=== PATIENT | male | born 1990 | race American Indian/Alaskan Native ===

== ENCOUNTER 2019-10-01 18:59 | Emergency (ER) | payer OTHER ==
[2019-10-01 19:49] LABS: Hematocrit 49.7 % (35.5-45.6); Hemoglobin 16.7 gm/dl (11.8-15.2); Mean Corpuscular HGB Conc 34 % (32-34); Mean Corpuscular Volume 97 fl (84-94); Platelet Count 193 K/mm3 (140-440); Red Blood Count 5.13 M/mm3 (3.65-5.03); Red Cell Distribution Width 13.6 % (13.2-15.2)
[2019-10-01 20:05] LABS: Alanine Aminotransferase 18 units/L (7-56); Albumin 4.6 g/dL (3.9-5); BUN/Creatinine Ratio 16; Blood Urea Nitrogen 16 mg/dL (9-20); Calcium 9.5 mg/dL (8.4-10.2); Hemolysis Index 75
--- NOTE | 2019-10-01 20:37 | XRay Report ---
CHEST 2 VIEWS INDICATION / CLINICAL INFORMATION: Chest Pain. COMPARISON: None available. FINDINGS: SUPPORT DEVICES: None. HEART / MEDIASTINUM: No significant abnormality. LUNGS / PLEURA: No significant pulmonary or pleural abnormality. No pneumothorax. ADDITIONAL FINDINGS: No significant additional findings. IMPRESSION: No significant abnormality Signer Name: Rahul Saleh MD FACR Signed: 10/01/2019 8:33 PM Workstation Name: [id number]
[2019-10-01 20:51] LABS: Total Cells Counted 100
[2019-10-01 20:52] LABS: Large Platelets 1+; Platelet Estimate Consistent w Auto; RBC Morphology Normal
--- NOTE | 2019-10-01 20:53 | Emergency Department Report ---
<CORTNEY PORTILLOYESYCECI Fernandez - Last Filed: 10/01/19 21:54> ED Chest Pain HPI - General Chief Complaint: Chest Pain Stated Complaint: CHEST PAIN/SHARP PAIN PUI?: No Source: patient Mode of arrival: Ambulatory Limitations: No Limitations - History of Present Illness Initial Comments: This is a 28-year-old healthy male with no prior medical history who presents the ED complaining of right-sided lower chest/abdominal pain that began 3 hours ago. Patient states that he started to get a sharp intermittent pains lasting about 10 seconds and relieving. Patient describes the pain as colicky that comes out a chill and resolves in 10 seconds. Patient denies fever/chills/nausea vomiting/shortness of breath. Patient does note that he was drinking alcohol yesterday but other than that he has no medical conditions or abdominal history MD Complaint: chest pain - Related Data Previous Rx's Medication Instructions Recorded Last Taken Type methOCARBAMOL [Robaxin TAB] 500 mg PO BID #20 tab 10/01/19 Unknown Rx Allergies Allergy/AdvReac Type Severity Reaction Status Date / Time No Known Allergies Allergy Unverified 10/01/19 19:17 Heart Score - HEART Score History: Slightly suspicious EKG: Normal Age: < 45 Risk factors: No known risk factors Troponin: < normal limit HEART Score: 0 ED Review of Systems Comment: All other systems reviewed and negative ED Past Medical Hx - Past Medical History Previous Medical History?: No - Surgical History Past Surgical History?: No - Social History Smoking Status: Never Smoker Substance Use Type: Alcohol, Marijuana - Medications Home Medications: Home Medications Medication Instructions Recorded Confirmed Last Taken Type methOCARBAMOL [Robaxin TAB] 500 mg PO BID #20 tab 10/01/19 Unknown Rx ED Physical Exam - General Limitations: No Limitations General appearance: alert, in no apparent distress - Head Head exam: Present: atraumatic, normocephalic - Eye Eye exam: Present: normal appearance - ENT ENT exam: Present: mucous membranes moist - Neck Neck exam: Present: normal inspection - Respiratory Respiratory exam: Present: normal lung sounds bilaterally. Absent: respiratory distress, wheezes, chest wall tenderness, accessory muscle use - Cardiovascular Cardiovascular Exam: Present: regular rate, normal rhythm. Absent: systolic murmur, diastolic murmur, rubs, gallop - GI/Abdominal GI/Abdominal exam: Present: soft, normal bowel sounds - Rectal Rectal exam: Present: deferred - Extremities Exam Extremities exam: Present: normal inspection - Back Exam Back exam: Present: normal inspection - Neurological Exam Neurological exam: Present: alert, oriented X3 - Psychiatric Psychiatric exam: Present: normal affect, normal mood - Skin Skin exam: Present: warm, dry, intact, normal color. Absent: rash BARNEY score - Barney Score Age > 65: (0) No Aspirin use within the Past 7 Days: (0) No 3 or more CAD Risk Factors: (0) No 2 or more Angina events in past 24 hrs: (0) No Known CAD with more than 50% Stenosis: (0) No Elevated Cardiac Markers: (0) No ST Deviation Greater than 0.5mm: (0) No BARNEY Score: 0 ED Medical Decision Making - Lab Data Result diagrams: 10/01/19 19:38 10/01/19 19:38 Laboratory Last Values WBC 5.4 K/mm3 (4.5-11.0) 10/01/19 19:38 RBC 5.13 M/mm3 (3.65-5.03) H 10/01/19 19:38 Hgb 16.7 gm/dl (11.8-15.2) H 10/01/19 19:38 Hct 49.7 % (35.5-45.6) H 10/01/19 19:38 MCV 97 fl (84-94) H 10/01/19 19:38 MCH 33 pg (28-32) H 10/01/19 19:38 MCHC 34 % (32-34) 10/01/19 19:38 RDW 13.6 % (13.2-15.2) 10/01/19 19:38 Plt Count 193 K/mm3 (140-440) 10/01/19 19:38 [place] % (Auto) Tapper Balance Wheel Screw Hole 10/01/19 19:38 Add Manual Diff Complete 10/01/19 19:38 Total Counted 100 10/01/19 19:38 Seg Neuts % (Manual) 48.0 % (40.0-70.0) 10/01/19 19:38 Band Neutrophils % 0 % 10/01/19 19:38 Lymphocytes % (Manual) 27.0 % (13.4-35.0) 10/01/19 19:38 Reactive Lymphs % (Man) 0 % 10/01/19 19:38 Monocytes % (Manual) 20.0 % (0.0-7.3) H 10/01/19 19:38 Eosinophils % (Manual) 3.0 % (0.0-4.3) 10/01/19 19:38 Basophils % (Manual) 2.0 % (0.0-1.8) H 10/01/19 19:38 Metamyelocytes % 0 % 10/01/19 19:38 Myelocytes % 0 % 10/01/19 19:38 Promyelocytes % 0 % 10/01/19 19:38 Blast Cells % 0 % 10/01/19 19:38 Nucleated RBC % Not Reportable 10/01/19 19:38 Seg Neutrophils # Man 2.6 K/mm3 (1.8-7.7) 10/01/19 19:38 Band Neutrophils # 0.0 K/mm3 10/01/19 19:38 Lymphocytes # (Manual) 1.5 K/mm3 (1.2-5.4) 10/01/19 19:38 Abs React Lymphs (Man) 0.0 K/mm3 10/01/19 19:38 Monocytes # (Manual) 1.1 K/mm3 (0.0-0.8) H 10/01/19 19:38 Eosinophils # (Manual) 0.2 K/mm3 (0.0-0.4) 10/01/19 19:38 Basophils # (Manual) 0.1 K/mm3 (0.0-0.1) 10/01/19 19:38 Metamyelocytes # 0.0 K/mm3 10/01/19 19:38 Myelocytes # 0.0 K/mm3 10/01/19 19:38 Promyelocytes # 0.0 K/mm3 10/01/19 19:38 Blast Cells # 0.0 K/mm3 10/01/19 19:38 WBC Morphology Not Reportable 10/01/19 19:38 Hypersegmented Neuts Not Reportable 10/01/19 19:38 Hyposegmented Neuts Not Reportable 10/01/19 19:38 Hypogranular Neuts Not Reportable 10/01/19 19:38 Smudge Cells Not Reportable 10/01/19 19:38 Toxic Granulation Not Reportable 10/01/19 19:38 Toxic Vacuolation Not Reportable 10/01/19 19:38 Dohle Bodies Not Reportable 10/01/19 19:38 Pelger-Huet Anomaly Not Reportable 10/01/19 19:38 Fanta Rods Not Reportable 10/01/19 19:38 Platelet Estimate Consistent w auto 10/01/19 19:38 Clumped Platelets Not Reportable 10/01/19 19:38 Plt Clumps, EDTA Not Reportable 10/01/19 19:38 Large Platelets 1+ 10/01/19 19:38 Giant Platelets Not Reportable 10/01/19 19:38 Platelet Satelliting Not Reportable 10/01/19 19:38 Plt Morphology Comment Not Reportable 10/01/19 19:38 RBC Morphology Normal 10/01/19 19:38 Dimorphic RBCs Not Reportable 10/01/19 19:38 Polychromasia Not Reportable 10/01/19 19:38 Hypochromasia Not Reportable 10/01/19 19:38 Poikilocytosis Not Reportable 10/01/19 19:38 Anisocytosis Not Reportable 10/01/19 19:38 Microcytosis Not Reportable 10/01/19 19:38 Macrocytosis Not Reportable 10/01/19 19:38 Spherocytes Not Reportable 10/01/19 19:38 Pappenheimer Bodies Not Reportable 10/01/19 19:38 Sickle Cells Not Reportable 10/01/19 19:38 Target Cells Not Reportable 10/01/19 19:38 Tear Drop Cells Not Reportable 10/01/19 19:38 Ovalocytes Not Reportable 10/01/19 19:38 Helmet Cells Not Reportable 10/01/19 19:38 [place]ehan-C[place]well Bodies Not Reportable 10/01/19 19:38 [place] Rings Not Reportable 10/01/19 19:38 [place] Cells Not Reportable 10/01/19 19:38 Bite Cells Not Reportable 10/01/19 19:38 Crenated Cell Not Reportable 10/01/19 19:38 Elliptocytes Not Reportable 10/01/19 19:38 Acanthocytes (Spur) Not Reportable 10/01/19 19:38 Rouleaux Not Reportable 10/01/19 19:38 Hemoglobin C Crystals Not Reportable 10/01/19 19:38 Schistocytes Not Reportable 10/01/19 19:38 Malaria parasites Not Reportable 10/01/19 19:38 Elder Bodies Not Reportable 10/01/19 19:38 Hem Pathologist Commnt No 10/01/19 19:38 Sodium 140 mmol/L (137-145) 10/01/19 19:38 Potassium 4.2 mmol/L (3.6-5.0) 10/01/19 19:38 Chloride 96.9 mmol/L (98-107) L 10/01/19 19:38 Carbon Dioxide 28 mmol/L (22-30) 10/01/19 19:38 Anion Gap 19 mmol/L 10/01/19 19:38 BUN 16 mg/dL (9-20) 10/01/19 19:38 Creatinine 1.0 mg/dL (0.8-1.5) 10/01/19 19:38 Estimated GFR > 60 ml/min 10/01/19 19:38 BUN/Creatinine Ratio 16 % 10/01/19 19:38 Glucose 100 mg/dL (75-100) 10/01/19 19:38 Calcium 9.5 mg/dL (8.4-10.2) 10/01/19 19:38 Total Bilirubin 0.20 mg/dL (0.1-1.2) 10/01/19 19:38 AST 21 units/L (5-40) 10/01/19 19:38 ALT 18 units/L (7-56) 10/01/19 19:38 Alkaline Phosphatase 61 units/L (35-129) 10/01/19 19:38 Total Creatine Kinase 112 units/L (55-170) 10/01/19 19:38 Troponin T < 0.010 ng/mL (0.00-0.029) 10/01/19 19:38 Total Protein 8.4 g/dL (6.3-8.2) H 10/01/19 19:38 Albumin 4.6 g/dL (3.9-5) 10/01/19 19:38 Albumin/Globulin Ratio 1.2 % 10/01/19 19:38 Influenza A (Rapid) Negative (Negative) 10/01/19 Unknown Influenza B (Rapid) Negative (Negative) 10/01/19 Unknown Group A Strep Rapid Negative (Negative) 10/01/19 Unknown - Radiology Data Radiology results: report reviewed, image reviewed CHEST 2 VIEWS INDICATION / CLINICAL INFORMATION: Chest Pain. COMPARISON: None available. FINDINGS: SUPPORT DEVICES: None. HEART / MEDIASTINUM: No significant abnormality. LUNGS / PLEURA: No significant pulmonary or pleural abnormality. No pneumothorax. ADDITIONAL FINDINGS: No significant additional findings. IMPRESSION: No significant abnormality Signer Name: Rahul Saleh MD FACR Signed: 10/01/2019 8:33 PM Workstation Name: [id number] Transcribed By: MS Dictated By: Rahul Saleh MD Electronically Authenticated By: Rahul Saleh MD Signed Date/Time: 10/01/192032 - Medical Decision Making This 28-year-old male who presented to ED complaining of right sided lower/abdominal chest pain. All labs are within normal limits troponin negative x2 EKG normal, chest x-ray normal. Influenza / strep was all negative Patient was nontender during exam abdomen. No signs of hepatomegaly. Patient keeps insisting that he is having sharp pains to the right side. Limited abdominal ultrasound ordered to scan the liver and gallbladder for sludge. If ultrasound negative. Patient to be discharged home with instructions to take Motrin as needed for pain and Robaxin prescribed. Patient given pain medication in the ED. ED Disposition Clinical Impression: Costochondral chest pain, Chest wall pain Disposition: DC-01 TO HOME OR SELFCARE Is pt being admited?: No Does the pt Need Aspirin: No Condition: Stable Instructions: Chest Pain (ED), Costochondritis (ED), Gastroenteritis (ED) Additional Instructions: Make sure to follow up with the primary care physician as discussed. Take all your medications as you've been prescribed. If you have any worsening symptoms or develop new symptoms please return to ED immediately. Prescriptions: methOCARBAMOL [Robaxin TAB] 500 mg PO BID #20 tab Referrals: PRIMARY CARE, [Primary Care Provider] - 3-5 Days [facility] [Provider Group] - 3-5 Days [facility] [Provider Group] - 3-5 Days Forms: Work/School Release Form(ED) <RUDY SAUNDERS - Last Filed: 10/02/19 01:44> ED Review of Systems ROS: Stated complaint: CHEST PAIN/SHARP PAIN Other details as noted in HPI ED Course Vital Signs 10/01/19 10/01/19 19:17 21:31 Temperature 99.7 F H Pulse Rate 66 Respiratory 18 18 Rate Blood Pressure 157/101 O2 Sat by Pulse 99 Oximetry ED Medical Decision Making - Lab Data Result diagrams: 10/01/19 19:38 10/01/19 19:38 - Radiology Data Referring Physician:ISABELLA Dee Name:NAINA PATELPatient ID:[id number] of :[id number]:MaleAccession:[id number] Date:[id number] Status:Finalized Findings [facility] [address] [place] [address] Ultrasound Report Signed Patient: NAINA PATEL MR#: [id number] : 1990 Acct:[id number] Age/Sex: 28 / M ADM Date: 10/01/19 Loc: ED Attending Dr: Ordering Physician: VIVIANE ORTEGA Date of Service: 10/01/19 Procedure(s): US abdomen limited Accession Number(s): [id number] cc: VIVIANE ORTEGA ULTRASOUND ABDOMEN, LIMITED (RIGHT UPPER QUADRANT) INDICATION: Right upper quadrant pain. COMPARISON: None. FINDINGS: Pancreas: Visualized portions of the pancreas are within normal limits. Liver: The liver appears normal and size and echogenicity. Gallbladder: The gallbladder appears normal without wall thickening or stones. Bile ducts: Common Bile Duct is normal in caliber measuring less than 2 mm Free fluid: None. Additional Findings: None. IMPRESSION: 1. No sonographic abnormality of the right upper quadrant. Signer Name: Angelia Kim MD Signed: 10/02/2019 12:43 AM Workstation Name: [id number] Transcribed By: EB Dictated By: Angelia Kim MD Electronically Authenticated By: Angelia Kim MD Signed Date/Time: 10/02/1942 DD/ TD/TT: Critical care attestation.: If time is entered above; I have spent that time in minutes in the direct care of this critically ill patient, excluding procedure time. ED Disposition Is pt being admited?: No Does the pt Need Aspirin: No
[2019-10-01] MEDS ORDERED: predniSONE 20 MG TAB PO ONE (21:24)
[2019-10-01] MEDS ORDERED: ACETAMINOPHEN W/CODEINE 300-30 MG TAB PO ONE (21:24)
--- NOTE | 2019-10-02 00:47 | Ultrasound Report ---
ULTRASOUND ABDOMEN, LIMITED (RIGHT UPPER QUADRANT) INDICATION: Right upper quadrant pain. COMPARISON: None. FINDINGS: Pancreas: Visualized portions of the pancreas are within normal limits. Liver: The liver appears normal and size and echogenicity. Gallbladder: The gallbladder appears normal without wall thickening or stones. Bile ducts: Common Bile Duct is normal in caliber measuring less than 2 mm Free fluid: None. Additional Findings: None. IMPRESSION: 1. No sonographic abnormality of the right upper quadrant. Signer Name: Angelia Kim MD Signed: 10/02/2019 12:43 AM Workstation Name: [id number]
[2019-10-02 01:43] VITALS: BP 128/92
== END 2019-10-02 01:43 | disposition home or self-care (01) ==
LOC: ED 18:59
DX: R07.89 Other chest pain (principal); F12.90 Cannabis use, unspecified, uncomplicated; Z79.899 Other long term (current) drug therapy
CPT/HCPCS: 36415; 71046; 76705; 80053; 82550; 84484; 85007; 85025; 87116; 87400; 87430; 93005; 99284; J7512

== ENCOUNTER 2021-04-13 07:57 | Emergency (ER) | payer OTHER ==
[2021-04-13 09:12] VITALS: BP 134/78
[2021-04-13] MEDS ORDERED: diphenhydrAMINE 50 MG/ML VIAL IV ONE (09:13)
[2021-04-13] MEDS ORDERED: SODIUM CHLORIDE 0.9% 1000 ML 1,000 ML IV ONE (09:13)
[2021-04-13] MEDS ORDERED: METOCLOPRAMIDE 10 MG/2 ML INJ IV ONE (09:13)
[2021-04-13] MEDS ORDERED: PANTOPRAZOLE 40 MG INJ IV ONE (09:13)
[2021-04-13] MEDS ORDERED: BACLOFEN 10 MG TAB PO STA (09:14)
--- NOTE | 2021-04-13 09:16 | Emergency Department Report ---
ED General Adult HPI - General Chief complaint: Upper Respiratory Infection Stated complaint: PNEUMONIA SYMPTOMS Time Seen by Provider: 04/13/21 09:02 Source: patient Mode of arrival: Ambulatory Limitations: No Limitations - History of Present Illness Initial comments: 30-year-old -Monegas[place] male patient presents with complaints of body aches, chills, nausea/vomiting/diarrhea, and cough x4 days. He also complains of intractable hiccups for the past 2 days. Patient states he is vaccinated against COVID-19 and has a test scheduled for COVID-19 at 12 PM today in urgent care, however his cousin who is an [employer] recommend he come to the ED to get checked for pneumonia due to the intractable hiccups. He denies being a heavy drinker or history of intractable hiccups, however he states he did have some binge drinking about 2 weeks ago while on a trip in [facility]. No hemoptysis, leg pain/swelling, history of DVT/PE/cancer, or shortness of breath/chest pain per patient. He also denies any hematemesis/coffee-ground emesis or melena/hemato chezia. No other prior medical history per patient. - Related Data Previous Rx's Medication Instructions Recorded Last Taken Type methOCARBAMOL [Robaxin TAB] 500 mg PO BID #20 tab 10/01/19 Unknown Rx Albuterol Sulfate [Proventil Hfa] 6.7 gm IH Q4H PRN #1 hfa.aer.ad 04/13/21 Unknown Rx Amoxicillin [Trimox CAP] 1,000 mg PO Q8H 7 Days #42 capsule 04/13/21 Unknown Rx Azithromycin [Zithromax Z-KIMMY] 0 mg PO DAILY #6 tab 04/13/21 Unknown Rx predniSONE [Deltasone] 20 mg PO BID 3 Days #6 tab 04/13/21 Unknown Rx Allergies Allergy/AdvReac Type Severity Reaction Status Date / Time No Known Allergies Allergy Verified 04/13/21 08:00 ED Review of Systems ROS: Stated complaint: PNEUMONIA SYMPTOMS Other details as noted in HPI Constitutional: chills, malaise, weakness. denies: diaphoresis, fever Respiratory: cough. denies: shortness of breath Cardiovascular: denies: chest pain Gastrointestinal: nausea, vomiting, diarrhea. denies: abdominal pain, constipation, hematemesis, melena, hematochezia Genitourinary: denies: urgency, dysuria, frequency, hematuria Musculoskeletal: denies: arthralgia Skin: denies: lesions, change in color Neurological: denies: headache Hematological/Lymphatic: denies: swollen glands ED Past Medical Hx - Social History Smoking Status: Never Smoker Substance Use Type: Alcohol, Marijuana - Medications Home Medications: Home Medications Medication Instructions Recorded Confirmed Last Taken Type methOCARBAMOL [Robaxin TAB] 500 mg PO BID #20 tab 10/01/19 Unknown Rx Albuterol Sulfate [Proventil Hfa] 6.7 gm IH Q4H PRN #1 hfa.aer.ad 04/13/21 Unknown Rx Amoxicillin [Trimox CAP] 1,000 mg PO Q8H 7 Days #42 capsule 04/13/21 Unknown Rx Azithromycin [Zithromax Z-KIMMY] 0 mg PO DAILY #6 tab 04/13/21 Unknown Rx predniSONE [Deltasone] 20 mg PO BID 3 Days #6 tab 04/13/21 Unknown Rx ED Physical Exam - General Limitations: No Limitations General appearance: alert, in no apparent distress - Head Head exam: Present: atraumatic, normocephalic - Eye Eye exam: Present: normal appearance. Absent: scleral icterus - ENT ENT exam: Present: normal exam - Neck Neck exam: Present: normal inspection - Respiratory Respiratory exam: Present: rales (Left mid/lower lung), rhonchi (Left mid/lower lung). Absent: respiratory distress, wheezes, chest wall tenderness - Cardiovascular Cardiovascular Exam: Present: regular rate, normal rhythm - GI/Abdominal GI/Abdominal exam: Present: soft, normal bowel sounds. Absent: distended, tenderness, guarding, rebound, rigid - Neurological Exam Neurological exam: Present: alert, oriented X3, normal gait - Psychiatric Psychiatric exam: Present: normal affect, normal mood - Skin Skin exam: Present: warm, dry, intact, normal color. Absent: rash ED Course Vital Signs 04/13/21 09:12 Temperature 99 F Pulse Rate 82 Respiratory 14 Rate Blood Pressure 134/78 [Left] O2 Sat by Pulse 99 Oximetry ED Medical Decision Making - Lab Data Result diagrams: 04/13/21 11:13 04/13/21 11:13 Lab Results 04/13/21 04/13/21 04/13/21 Range/Units 11:13 11:13 11:13 WBC 4.0 L (4.5-11.0) K/mm3 RBC 5.13 H (3.65-5.03) M/mm3 Hgb 16.2 H (11.8-15.2) gm/dl Hct 48.8 H (35.5-45.6) % MCV 95 H (84-94) fl MCH 32 (28-32) pg MCHC 33 (32-34) % RDW 13.2 (13.2-15.2) % White % (Auto) [employer] D-Dimer 315.79 H (0-234) ng/mlDDU Sodium 136 L (137-145) mmol/L Potassium 4.0 (3.6-5.0) mmol/L Chloride 99.7 (98-107) mmol/L Carbon Dioxide 20 L (22-30) mmol/L Anion Gap 20 mmol/L BUN 18 (9-20) mg/dL Creatinine 1.1 (0.8-1.3) mg/dL Estimated GFR > 60 ml/min BUN/Creatinine Ratio 16 % Glucose 84 (75-100) mg/dL Calcium 8.3 L (8.4-10.2) mg/dL Total Bilirubin 0.30 (0.1-1.2) mg/dL AST 24 (5-40) units/L ALT 21 (7-56) units/L Alkaline Phosphatase 57 (35-129) units/L Total Protein 7.1 (6.3-8.2) g/dL Albumin 4.2 (3.9-5) g/dL Albumin/Globulin Ratio 1.4 % Influenza A (Rapid) (Negative) Influenza B (Rapid) (Negative) 04/13/21 Range/Units Unknown WBC (4.5-11.0) K/mm3 RBC (3.65-5.03) M/mm3 Hgb (11.8-15.2) gm/dl Hct (35.5-45.6) % MCV (84-94) fl MCH (28-32) pg MCHC (32-34) % RDW (13.2-15.2) % White % (Auto) D-Dimer (0-234) ng/mlDDU Sodium (137-145) mmol/L Potassium (3.6-5.0) mmol/L Chloride (98-107) mmol/L Carbon Dioxide (22-30) mmol/L Anion Gap mmol/L BUN (9-20) mg/dL Creatinine (0.8-1.3) mg/dL Estimated GFR ml/min BUN/Creatinine Ratio % Glucose (75-100) mg/dL Calcium (8.4-10.2) mg/dL Total Bilirubin (0.1-1.2) mg/dL AST (5-40) units/L ALT (7-56) units/L Alkaline Phosphatase (35-129) units/L Total Protein (6.3-8.2) g/dL Albumin (3.9-5) g/dL Albumin/Globulin Ratio % Influenza A (Rapid) Negative (Negative) Influenza B (Rapid) Negative (Negative) - Radiology Data Radiology results: report reviewed CHEST 2 VIEWS INDICATION: left abnormal BS, cough, flu sxs,. COMPARISON: 10/01/2019 FINDINGS: Support devices: None. Heart: Within normal limits. Lungs/Pleura: No acute air space or interstitial disease. No significant pleural effusion. IMPRESSION: No acute findings. A macro CTA chest CT angio chest INDICATION / CLINICAL INFORMATION: + dimer, abnormal L breath sounds OMNI 350 100 ML. TECHNIQUE: Axial CT images were obtained through the chest after injection of IV contrast. 3 plane MIP and/or 3D reconstructions were produced. All CT scans at this location are performed using CT dose reduction for ALARA by means of automated exposure control. COMPARISON: None available. FINDINGS: PULMONARY ARTERIES: No pulmonary emboli. HEART: No significant abnormality. MEDIASTINUM / TERRELL: No significant abnormality. LUNGS: There are couple of scattered pulmonary nodules. For example the largest nodule measures 5 mm in the superior segment right lower lobe on image 193 of series 4 and there is a 3 mm nodule as well image 199 also the superior segment right lower lobe. Small groundglass opacity in the medial basal segment right lower lobe No pleural effusion. No pneumothorax. ADDITIONAL FINDINGS: None. UPPER ABDOMEN: No acute findings. SKELETAL STRUCTURES: No significant osseous abnormality. IMPRESSION: 1. No CT evidence for pulmonary embolism. 2. Groundglass opacity in the medial basal segment right lower lobe which could be likely atelectasis atelectasis or mild airspace disease such as pneumonia. 3. Scattered pulmonary nodules which are most likely benign in this age group measuring up to approximately 5 mm. Can obtain a follow-up CT in one year to ensure stability. - Medical Decision Making 30-year-old -[place] male patient presents with complaints of body aches, chills, nausea/vomiting/diarrhea, and cough x4 days. He also complains of intractable hiccups for the past 2 days. Patient states he is vaccinated against COVID-19 and has a test scheduled for COVID-19 at 12 PM today in urgent care, however his cousin who is an [employer] recommend he come to the ED to get checked for pneumonia due to the intractable hiccups. He denies being a heavy drinker or history of intractable hiccups, however he states he did have some binge drinking about 2 weeks ago while on a trip in [facility]. No hemoptysis, leg pain/swelling, history of DVT/PE/cancer, or shortness of breath/chest pain per patient. He also denies any hematemesis/coffee-ground emesis or melena/hematochezia. No other prior medical history per patient. Abnormal breath sounds on the left lung on exam. X-ray is normal. Mildly decreased WBCs noted on CBC without other acute abnormalities noted. Patient instructed to follow-up with PCP for recheck in 2 weeks. Given recent long travel, PERC score = 1. Dimer mildly positive at 351. CTA chest shows possible right atelectasis/pneumonia. Given patient's symptoms, will treat for community-acquired pneumonia with Amoxil and azithromycin. Discussed deep breathing exercises with patient. Patient to follow-up for COVID-19 testing within the next 24 to 48 hours and self quarantine until his results are back. He is well-appearing and stable for discharge home. Discussed presumptive diagnosis, care plan, in detail signs and symptoms that should prompt immediate return to the ED with patient who verbalizes understanding. Critical care attestation.: If time is entered above; I have spent that time in minutes in the direct care of this critically ill patient, excluding procedure time. ED Disposition Clinical Impression: Pneumonia, community acquired Disposition: 01 HOME / SELF CARE / HOMELESS Is pt being admited?: No Condition: Stable Instructions: Bacterial Pneumonia (ED), Community-Acquired Pneumonia, Adult, [id number] Prescriptions: predniSONE [Deltasone] 20 mg PO BID 3 Days #6 tab Albuterol Sulfate [Proventil Hfa] 6.7 gm IH Q4H PRN #1 hfa.aer.ad PRN Reason: Wheezing Amoxicillin [Trimox CAP] 1,000 mg PO Q8H 7 Days #42 capsule Azithromycin [Zithromax Z-KIMMY] 0 mg PO DAILY #6 tab Referrals: PRIMARY CARE, [Primary Care Provider] - 3-5 Days [facility] [Provider Group] - 3-5 Days Forms: Work/School Release Form(ED)
--- NOTE | 2021-04-13 09:45 | XRay Report ---
CHEST 2 VIEWS INDICATION: left abnormal BS, cough, flu sxs,. COMPARISON: 10/01/2019 FINDINGS: Support devices: None. Heart: Within normal limits. Lungs/Pleura: No acute air space or interstitial disease. No significant pleural effusion. IMPRESSION: No acute findings. Signer Name: Ramakrishna Ortiz MD Signed: 04/13/2021 9:41 AM Workstation Name: [id number]
[2021-04-13 11:39] LABS: Hematocrit 48.8 % (35.5-45.6); Hemoglobin 16.2 gm/dl (11.8-15.2); Mean Corpuscular HGB Conc 33 % (32-34); Mean Corpuscular Volume 95 fl (84-94); Red Blood Count 5.13 M/mm3 (3.65-5.03); Red Cell Distribution Width 13.2 % (13.2-15.2)
[2021-04-13 11:52] LABS: Alanine Aminotransferase 21 units/L (7-56); Albumin 4.2 g/dL (3.9-5); BUN/Creatinine Ratio 16; Blood Urea Nitrogen 18 mg/dL (9-20); Calcium 8.3 mg/dL (8.4-10.2); Hemolysis Index 22
--- NOTE | 2021-04-13 13:01 | Cat Scan Report ---
A macro CTA chest CT angio chest INDICATION / CLINICAL INFORMATION: + dimer, abnormal L breath sounds OMNI 350 100 ML. TECHNIQUE: Axial CT images were obtained through the chest after injection of IV contrast. 3 plane MIP and/or 3D reconstructions were produced. All CT scans at this location are performed using CT dose reduction f or ALARA by means of automated exposure control. COMPARISON: None available. FINDINGS: PULMONARY ARTERIES: No pulmonary emboli. HEART: No significant abnormality. MEDIASTINUM / TERRELL: No significant abnormality. LUNGS: There are couple of scattered pulmonary nodules. For example the largest nodule measures 5 mm in the superior segment right lower lobe on image 193 of series 4 and there is a 3 mm nodule as well image 199 also the superior segment right lower lobe. Small groundglass opacity in the medial basal s egment right lower lobe No pleural effusion. No pneumothorax. ADDITIONAL FINDINGS: None. UPPER ABDOMEN: No acute findings. SKELETAL STRUCTURES: No significant osseous abnormality. IMPRESSION: 1. No CT evidence for pulmonary embolism. 2. Groundglass opacity in the medial basal segment right lower lobe which could be likely atelectasis atelectasis or mild airspace disease such as pneumonia. 3. Scattered pulmonary nodules which are most likely benign in this age group measuring up to approxi mately 5 mm. Can obtain a follow-up CT in one year to ensure stability. Signer Name: Dash Feldman MD Signed: 04/13/2021 12:57 PM Workstation Name: [id number]
[2021-04-13 13:29] LABS: Band Neutrophils # (Manual) 0.2 K/mm3; Platelet Estimate Consistent w Auto; RBC Morphology Normal; Total Cells Counted 100
[2021-04-13 13:46] LABS: Platelet Count 149 K/mm3 (140-440)
== END 2021-04-13 13:24 | disposition home or self-care (01) ==
LOC: ED 07:57
DX: J18.8 Other pneumonia, unspecified organism (principal); Z79.899 Other long term (current) drug therapy
CPT/HCPCS: 36415; 71046; 71275; 80053; 85007; 85025; 85379; 87400; 96361; 96374; 96375; 99284; C9113; J1200; J2765; J7030; Q9967; Q0162